=== PATIENT | female | born 1965 | race Caucasian/White ===

== ENCOUNTER 2022-09-17 10:31 | Emergency (ER) | payer OTHER ==
[~2022-09-17] VITALS: Ht 162.6 cm; Wt 81.6 kg
[~2022-09-17 10:31] MED LIST: LEVO100T PO
[2022-09-17 11:15] VITALS: BP_SYST 128
--- NOTE | 2022-09-17 11:22 | NUR ---
Patient triaged and placed in waiting room. VSS and patient appears in no acute distress at this time. Accompanied by , awaiting available bed, and MD notified of need for MSE.
[2022-09-17 11:53] LABS: BASOPHILS % (AUTO) 0.4 % (0.0-2.0); EOSINOPHILS # (AUTO) 0.1 K/uL (0.0-0.4); EOSINOPHILS % (AUTO) 0.6 % (0.0-4.0); HEMATOCRIT 37.2 % (36-48); HEMOGLOBIN 12.7 g/dL (12.0-16.0); LYMPHOCYTES # (AUTO) 1.2 K/uL (1.0-5.5); LYMPHOCYTES % (AUTO) 11.4 % (20.5-51.5); MEAN CORPUSCULAR HEMOGLOBIN 32 pg (27-31); MEAN CORPUSCULAR HGB CONC 34 % (32-36); MEAN CORPUSCULAR VOLUME 95 fL (79.0-98.0); MONOCYTES # (AUTO) 0.6 K/uL (0.0-1.0); MONOCYTES % (AUTO) 5.3 % (1.7-9.3); NEUTROPHILS # (AUTO) 8.8 K/uL (1.8-7.7); NEUTROPHILS % (AUTO) 82.3 % (40.0-70.0); PLATELET COUNT (AUTO) 262 K/uL (130-430); RED BLOOD CELL COUNT(AUTO) 3.92 MIL/uL (4.2-6.2); RED CELL DISTRIBUTION WIDTH 12.9 % (9.0-15.0); WHITE BLOOD COUNT (AUTO) 10.7 K/uL (4.8-10.8)
[2022-09-17 12:04] LABS: CALCIUM 9.6 mg/dL (8.4-11.0); CREATININE 0.89 mg/dL (0.55-1.30)
[2022-09-17 12:10] LABS: PROTHROMBIN TIME 10.3 SECS (9.5-12.5)
[2022-09-17 12:16] LABS: ALBUMIN 3.6 g/dL (3.4-4.8); TOTAL BILIRUBIN 0.4 mg/dL (0.0-1.0)
[2022-09-17 12:42] VITALS: BP_SYST 130
--- NOTE | 2022-09-17 12:43 | NUR ---
PATIENT AMBULATORY TO ER AAOX4 SPEECH CLEAR AND COHERENT, PLACE IN ROOM 4, C/O VAGINAL BLEED, NO ACUTE DISTRESS NOTED, AT BEDSIDE, WILL CONTINUE TO MONITOR.
--- NOTE | 2022-09-17 12:44 | NUR ---
Patient to ER bed 4 to gown for evaluation. Side rails up. Report given to ERNESTO HAINES.
--- NOTE | 2022-09-17 12:45 | NUR ---
ER at bedside examining patient.
--- NOTE | 2022-09-17 12:46 | NUR ---
EDP AT BEDSIDE FOR REASSESSMENT.
--- NOTE | 2022-09-17 13:14 | NUR ---
ALL RESULT BACK, EDP REASSSESS PATIENT AND D/C HOME WITH INSTRUCTION.
--- NOTE | 2022-09-17 13:24 | NUR ---
Patient given written and verbal discharge instructions and verbalizes understanding. ER MD discussed with patient the results and treatment provided. Patient in stable condition. ID arm band removed. IV catheter removed intact and dressing applied, no active bleeding. Rx of given. Patient educated on pain management and to follow up with PMD. Pain Scale 0 Opportunity for questions provided and answered. Medication side effect fact sheet provided.
== END 2022-09-17 13:15 | disposition home or self-care (01) ==
LOC: SED 10:31
DX: N93.8 Other specified abnormal uterine and vaginal bleeding (principal); Z79.899 Other long term (current) drug therapy
CPT/HCPCS: 36415; 76856-TC; 80053; 81002; 81025; 84702; 85025; 85610-TC; 85730-TC; 99284